=== PATIENT | female | born 1990 | race Caucasian/White ===

== ENCOUNTER 2017-06-30 05:15 | Emergency (ER) | payer MEDICAID, OTHER ==
[~2017-06-30 05:15] MED LIST: PERC5TAB12 PO; PRENTAB72 PO
--- NOTE | 2017-06-30 07:36 | PD ---
HPI Chief Complaint ctx Travel History International Travel<30 Days: No Contact w/Intl Traveler<30Days: No Known Affected Area: No History of Present Illness HPI 26y/o , IUP at 38.4 PNC complicated by h/o precipitous delivery (reports she went from "5 to 10cm in 30 minutes" Patient presents c/o ctx that became regular and every 5 minutes overnight although they have become more irregular. She denies any vaginal pressure or LOF. She denies any VB. She reports good FM. There were no aggravating or alleviating factors and no attempted treatments. The patient has no other ob complaints. Weeks Gestation: 38 Para: 2 : 3 History Past Medical History Medical History: Denies Significant Hx Obstetric History Obstetric History , FT x2 Past Surgical History Narrative Surgical Denies Family History Family History: Negative Social History Alcohol Use: No Tobacco Use: No Substance Abuse: No Allergies-Medications (Allergen,Severity, Reaction): Coded Allergies: No Known Allergies (Unverified , 06/07/13) Home Meds Reported Medications Oxycodone-Acetaminophen 5-325 mg (Percocet 5-325 mg) 5 Mg/325 Mg Tab, 1-2 TAB PO Q4 for PAIN, #20 TAB 06/27/13 Vit W/ Ferrous Fumara () Tab, 1 PO, TAB 06/25/13 Review of Systems Except as stated in HPI: all other systems reviewed are Neg Physical Exam Narrative GENERAL: Well-nourished, well-developed patient. SKIN: Warm and dry. HEAD: Normocephalic and atraumatic. EYES: No scleral icterus. No injection or drainage. ENT: No nasal drainage noted. Mucous membranes pink. Airway patent. NECK: Supple, trachea midline. No JVD. CARDIOVASCULAR: Regular rate and rhythm without murmurs, gallops, or rubs. RESPIRATORY: Breath sounds equal bilaterally. No accessory muscle use. BREASTS: Deferred ABDOMEN/GI: Abdomen soft, non-tender, bowel sounds present, no rebound, no guarding Gravid GENITOURINARY: External Genitalia: intact and normal in appearance No cervical/vaginal masses, normal rugae, physiologic d/c SVE 4/70/-2 per RN and unchanged over 1h, pt declined further observation/ evaluation [place] q 2-7, irregular pattern and patient comfortable throughout FHT's: Category 1 120s, moderate LTV, good acccels, no decels, reactive EXTREMITIES: No cyanosis or edema. BACK: Nontender without obvious deformity. No CVA tenderness. NEUROLOGICAL: Awake and alert. Motor and sensory grossly within normal limits. Five out of 5 muscle strength in all muscle groups. Normal speech. MDM Narrative Course / MDM A/P: 26y/o 1. IUP at 38.4 2. No evidence of active labor: strict labor precautions, offered additional observation due to h/o precipitous delivery but patient declines further observation for cervical change. 3. wellbeing: reassuring testing, reactive NST, FHR reassuring and appropriate for gestational age, FKC daily 4. F/U with primary Ob today as scheduled or sooner if needed Disposition: 01 DISCHARGE HOME Condition: Good Patient Instructions: General Instructions, Having Your Baby: The Labor Process (GEN), Movement (ED) Departure Forms: Tests/Procedures Rosanna Maldonado MD Jun 30, 2017 07:36
== END 2017-06-30 07:00 | disposition home or self-care (01) ==
LOC: HOBED 05:15
DX: O47.1 False labor at or after 37 completed weeks of gestation (principal); Z3A.38 38 weeks gestation of pregnancy
CPT/HCPCS: 59025; 99284

== ENCOUNTER 2017-06-30 11:50 | Inpatient (IN) | payer MEDICAID ==
[2017-06-30] VITALS (16 sets, daily range): BP systolic 105–144; BP diastolic 63–93; PULSE 78–96; RESP 16–18; TEMP 97.4–98.3
[2017-06-30] MEDS ORDERED: LACTATED RINGER'S 1000 ML INJ 1,000 ML IV PRN (12:35)
[2017-06-30] MEDS ORDERED: LACTATED RINGER'S 1000 ML INJ 1,000 ML IV SCH (12:35)
--- NOTE | 2017-06-30 12:44 | HHI.HP ---
HPI Chief Complaint 38 6/7 with cervical change consistent with active labor late care Date Seen: Jun 30, 2017 Travel History International Travel<30 Days: No Contact w/Intl Traveler<30Days: No Known Affected Area: No History of Present Illness HPI 26 yo mwf seen first time on 06/24 at [facility] high risk clinic. Sent there only because she could not get access to PNC in an office after obtaining her medicaid late in . Has had two term pregnancies and deliveries with no complication. Ultrasound in my office consistent with her LMP of 10/01/16 and should be 38 6/7. Was in L & D this am and sent home at 4 cm. 6cm in my office. Lives in [place]. Homemaker. No NV, DSOUZA, blurred vision, RUQT. No PTL. No leaking or bleeding. GFM. History Past Medical History Medical History: Denies Significant Hx Obstetric History Obstetric History two term SVDs proven to 8 pounds 13 ounces Past Surgical History Surgical History: No Previous Surgery Family History Family History: Negative Social History Alcohol Use: No Tobacco Use: No Substance Abuse: No Allergies-Medications (Allergen,Severity, Reaction): Coded Allergies: No Known Allergies (Unverified , 06/07/13) Home Meds Reported Medications Oxycodone-Acetaminophen 5-325 mg (Percocet 5-325 mg) 5 Mg/325 Mg Tab, 1-2 TAB PO Q4 for PAIN, #20 TAB 06/27/13 Vit W/ Ferrous Fumara () Tab, 1 PO, TAB 06/25/13 Review of Systems General / Constitutional: No: Fever, Weight Gain, Chills, Other Eyes: No: Diploplia, Blurred Vision, Visual changes, Pain, Photophobia HENT: No: Headaches, Vertigo, Lightheadedness Cardiovascular: No: Irregular Rhythm, Chest Pain or Discomfort, Palpitations, Tachycardia, Syncope, Varicosities, Edema, Cyanosis Respiratory: No: Cough, Short of Breath, Other Gastrointestinal: No: Nausea, Vomiting, Diarrhea Genitourinary: No: Decreased Urinary Output, Oliguria Musculoskeletal: No: Limited ROM, Weakness, Cramping, Edema, Pain Skin: No Rash, No Itching, No Dryness, No Lumps, No Change in Pigmentation, No Change in Nails, No Alopecia, No Lesions Neurologic: No: Weakness, Dizziness, Syncope, Focal Abnormalities, Coordination Problem, Headache, Slurred Speech, Seizures Psychiatric: No: Depression, Suicidal Ideations, Homicidal Ideation Endocrine: No: Heat Intolerance, Cold Intolerance, Polydipsia, Polyuria, Other Physical Exam Narrative GENERAL: Well-nourished, well-developed patient. SKIN: Warm and dry. HEAD: Normocephalic and atraumatic. EYES: No scleral icterus. No injection or drainage. ENT: No nasal drainage noted. Mucous membranes pink. Airway patent. NECK: Supple, trachea midline. No JVD. CARDIOVASCULAR: Regular rate and rhythm without murmurs, gallops, or rubs. RESPIRATORY: Breath sounds equal bilaterally. No accessory muscle use. BREASTS: Bilateral exam showed no masses , no retractions, no nipple discharge. ABDOMEN/GI: Abdomen soft, non-tender, bowel sounds present, no rebound, no guarding term fundus/cephalic GENITOURINARY: 6/80/-1 EFW 8 pounds pelvis clinically adequate strip category 1 EXTREMITIES: No cyanosis or edema. BACK: Nontender without obvious deformity. No CVA tenderness. NEUROLOGICAL: Awake and alert. Motor and sensory grossly within normal limits. Five out of 5 muscle strength in all muscle groups. Normal speech. Caprini VTE Risk Assessment Caprini VTE Risk Assessment: No/Low Risk (score <= 1) Caprini Risk Assessment Model Point Value = 1 Point Value = 2 Point Value = 3 Point Value = 5 Age 41-60 Minor surgery BMI > 25 kg/m2 Swollen legs Varicose veins or History of unexplained or recurrent spontaneous Oral contraceptives or hormone replacement Sepsis (< 1 month) Serious lung disease, including pneumonia (< 1 month) Abnormal pulmonary function Acute myocardial infarction Congestive heart failure (< 1 month) History of inflammatory bowel disease Medical patient at bed rest Age 61-74 Arthroscopic surgery Major open surgery (> 45 min) Laparoscopic surgery (> 45 min) Malignancy Confined to bed (> 72 hours) Immobilizing plaster cast Central venous access Age >= 75 History of VTE Family history of VTE Factor V Leiden Prothrombin [id number] Lupus anticoagulant Anticardiolipin antibodies Elevated serum homocysteine Heparin-induced thrombocytopenia Other congenital or acquired thrombophilia Stroke (< 1 month) Elective arthroplasty Hip, pelvis, or leg fracture Acute spinal cord injury (< 1 month) Prophylaxis Regimen Total Risk Factor Score Risk Level Prophylaxis Regimen 0-1 Low Early ambulation 2 Moderate Order ONE of the following: *Sequential Compression Device (SCD) *Heparin 5000 units SQ BID 3-4 Higher Order ONE of the following medications: *Heparin 5000 units SQ TID *Enoxaparin/Lovenox 40 mg SQ daily (WT < 150 kg, CrCl > 30 mL/min) *Enoxaparin/Lovenox 30 mg SQ daily (WT < 150 kg, CrCl > 10-29 mL/min) *Enoxaparin/Lovenox 30 mg SQ BID (WT < 150 kg, CrCl > 30 mL/min) AND/OR *Sequential Compression Device (SCD) 5 or more Highest Order ONE of the following medications: *Heparin 5000 units SQ TID (Preferred with Epidurals) *Enoxaparin/Lovenox 40 mg SQ daily (WT < 150 kg, CrCl > 30 mL/min) *Enoxaparin/Lovenox 30 mg SQ daily (WT < 150 kg, CrCl > 10-29 mL/min) *Enoxaparin/Lovenox 30 mg SQ BID (WT < 150 kg, CrCl > 30 mL/min) AND *Sequential Compression Device (SCD) Assessment/Plan Assessment and Plan term by dates but late PNC 6 cm and entering active labor obtain all labs arom when IV in place epidural prn pitocin prn anticipate Kerry Zamarripa MD Jun 30, 2017 12:44
[2017-06-30] MEDS ORDERED: OXYTOCIN 30 UNITS-500ML PREMIX 500 ML IV SCH ×2 (12:45→17:00)
[2017-06-30] MEDS ORDERED: LIDOCAINE HCL 1% 50 ML VIAL I-DERMAL PRN (12:45)
[2017-06-30] MEDS ORDERED: MINERAL OIL 10 ML VIAL TOPICAL PRN (12:45)
[2017-06-30] MEDS ORDERED: CITRIC ACID-SODIUM CITRATE LIQ 30 ML UDC PO SCH (12:45)
[2017-06-30] MEDS ORDERED: LIDOCAINE HCL 1% 50 ML VIAL INFIL PRN (12:45)
[2017-06-30] MEDS ORDERED: OXYTOCIN 30 UNITS-500ML PREMIX 500 ML IV ONE (12:45)
[2017-06-30] MEDS ORDERED: SODIUM CHLOR 0.9% 1000 ML INJ 1,000 ML IV PRN (12:55)
--- NOTE | 2017-06-30 13:19 | PD.LABORPN ---
Subjective Subjective Patient is resting in bed comfortably. Objective Objective Pelvic Exam: Cervix: midposition Dilatation: 6 Effacement: 60 Station: -2 Presentation: vertex Membranes: AROM, clear fluid Uterine Contractions: q2-4min FHT's: Category: I Baseline: 150 Reactive: + Variability: moderate Decels: none Weeks Gestation: 38 Gest Age Assessed Date: Jun 30, 2017 Gest Age Assessed Time: 13:15 Pt started active labor?: Yes Active labor start date: Jun 30, 2017 Active labor start time: 13:16 Medical induction of labor?: No Artificial rupture of membrane: Yes Artificial ROM date: Jun 30, 2017 Artifical ROM time: 13:15 Assessment/Plan Assessment and Plan 26 year old at 38-4/7 weeks gestation. 1. IUP- Category I tracing, reassuring. 2. Labor- AROM with clear fluid, labor progressing spontaneously. 3. GBS negative. 4. Anticipate vaginal delivery. riccow Arely Roman MD, R3 Jun 30, 2017 13:19
[2017-06-30 13:20] LABS: AUTOMATED NEUTROPHIL # 6.3 TH/MM3 (1.8-7.7); BASOPHIL % 0.1 % (0.0-2.0); EOSINOPHIL % 0.3 % (0.0-4.0); HEMATOCRIT 30.7 % (35.0-46.0); HEMO FLAGS DIFF FINAL; LYMPH % 21.8 % (9.0-44.0); LYMPHOCYTE # 1.9 TH/MM3 (1.0-4.8); MEAN CELL VOLUME 80.7 FL (80.0-100.0); MEAN CORPUSCULAR HEMOGLOBIN 26.1 PG (27.0-34.0); MEAN CORPUSCULAR HGB CONC 32.4 % (32.0-36.0); MONO % 4.6 % (0.0-8.0); NEUT % 73.2 % (16.0-70.0); PLATELET COUNT 216 TH/MM3 (150-450); RED BLOOD COUNT 3.81 MIL/MM3 (4.00-5.30); WHITE BLOOD COUNT 8.6 TH/MM3 (4.0-11.0)
[2017-06-30 13:31] LABS: BLOOD, URINE MOD (NEG); GLUCOSE,URINE NEG (NEG); KETONE, URINE 40 mg/dL (NEG); MUCUS URINE FEW /lpf (OCC); NITRITE,URINE NEG (NEG); SQUAMOUS EPITHELIAL CELL URINE 10 /hpf (0-5); TRANSITIONAL EPI CELLS, URINE <1 /hpf; URINE COLOR YELLOW (YELLW/STRAW)
[2017-06-30 13:34] LABS: COMMENT (UR) CULTURE INDICATED; CULTURE IF INDICATED CULTURE INDICATED
[2017-06-30] MEDS ORDERED: SODIUM CHLORID 0.9% 500 ML INJ 500 ML IV PRN (14:00)
[2017-06-30] MEDS ORDERED: DIPHTH/TETANUS/ACEL PERTUSSIS (BOOSTER) 0.5 ML VIAL/PFS IM ONE (16:00)
[2017-06-30] MEDS ORDERED: MEASLES, MUMPS, RUBELLA VACCINE 0.5 ML VIAL SQ ONE (16:00)
--- NOTE | 2017-06-30 16:57 | PD.OB.DELI ---
Weeks gestation: 38 Gest age assessed date: Jun 30, 2017 Gest age assessed time: 13:15 Pt started active labor?: Yes Active labor start date: Jun 30, 2017 Active labor start time: 13:16 Medical induction of labor?: No Artificial rupture of membrane: Yes Artificial ROM date: Jun 30, 2017 Artifical ROM time: 13:15 Anesthesia: None Episiotomy: None Vaginal Delivery: Normal Presentation: Occiput anterior Nuchal Cord: None Delayed cord clamping (45 sec): Yes Delivery date: Jun 30, 2017 Delivery time: 17:50 One Minute : 8 Five Minute : 9 Weight: Delayed for skin to skin Placenta: Spontaneous delivery, Intact, 3 vessel cord Laceration: No lacerations Estimated blood loss: 200cc Additional Information Supervised by Arely Roman MD, R3 Jun 30, 2017 16:57
[2017-06-30] MEDS ORDERED: WITCH HAZEL 50%/GLYCERIN 12.5% 40 PAD JAR TOPICAL PRN (17:00)
[2017-06-30] MEDS ORDERED: BENZOCAINE 20% TOPICAL SPRAY 60 ML CAN TOPICAL PRN (17:00)
[2017-06-30] MEDS ORDERED: oxyCODONE/ACETAMINOPHEN 5 MG/325 MG TAB PO PRN ×2 (17:00)
[2017-06-30] MEDS ORDERED: ZOLPIDEM TARTRATE 5 MG TAB PO PRN (17:00)
[2017-06-30] MEDS ORDERED: DOCUSATE SODIUM 50 MG/SENNA 8.6 MG TAB PO PRN (17:00)
[2017-06-30] MEDS ORDERED: ALUMINUM/MAGNESIUM/SIMETH 30 ML CUP PO PRN (17:00)
[2017-06-30] MEDS ORDERED: ACETAMINOPHEN 325 MG TAB PO PRN (17:00)
[2017-06-30] MEDS ORDERED: SODIUM CHLORIDE 0.9% FLUSH 10 ML FLUSH IV FLUSH PRN (17:00)
[2017-06-30] MEDS ORDERED: ONDANSETRON ODT 4 MG TAB PO PRN (17:00)
[2017-06-30 18:42] LABS: RUBELLA IGG ANTIBODY 13.2 IU/mL (10.0-500.0); RUBELLA STATUS IMMUNE (IMMUNE)
[2017-06-30] MEDS: IBUPROFEN 600 MG TAB PO PRN (20:02)
[2017-06-30] MEDS ORDERED: SODIUM CHLORIDE 0.9% FLUSH 10 ML FLUSH IV FLUSH SCH (21:00)
[2017-07-01] MEDS: IBUPROFEN 600 MG TAB PO PRN ×3 (03:22→18:53)
[2017-07-01 06:33] LABS: NEISSERIA PCR INVALID (NOT DETECT)
--- NOTE | 2017-07-01 07:53 | HHI.OB ---
Subjective Post Day: 1 Remarks no complaints, <24 hrs PP, Objective Vitals/I&O Vital Signs Date Time Temp Pulse Resp B/P (MAP) Pulse Ox O2 Delivery O2 Flow Rate FiO2 06/30/17 20:50 94 18 105/63 (77) 06/30/17 20:50 98.2 06/30/17 18:30 98.3 82 16 126/81 (96) 06/30/17 17:46 85 126/79 (95) 06/30/17 17:31 78 126/87 (100) 06/30/17 17:16 78 124/76 (92) 06/30/17 17:15 98.1 18 06/30/17 17:01 92 125/84 (98) 06/30/17 17:00 18 06/30/17 16:58 88 124/72 (89) 06/30/17 16:30 96 144/93 (110) 06/30/17 16:00 95 123/80 (94) 06/30/17 15:30 16 06/30/17 15:30 90 131/83 (99) 06/30/17 15:00 97.4 84 118/80 (93) 06/30/17 14:59 85 127/82 (97) 06/30/17 14:28 16 06/30/17 14:17 86 126/88 (101) Objective Remarks GENERAL: Well-nourished, well-developed patient. CARDIOVASCULAR: Regular rate and rhythm without murmurs, gallops, or rubs. RESPIRATORY: Breath sounds equal bilaterally. No accessory muscle use. ABDOMEN/GI: Abdomen soft, non-tender. Fundus: Firm, non-tender at umbilicus. GENITOURINARY: Light to moderate bleeding. EXTREMITIES: No cyanosis or edema, non-tender, without signs of DVT. Medications and IVs Current Medications Medications (Trade) Dose Ordered Sig/Mynor Route Start Time Stop Time Status Last Admin (NS Flush) 2 ml BID IV FLUSH 06/30/17 21:00 (NS Flush) 2 ml UNSCH PRN IV FLUSH 06/30/17 17:00 (Tylenol) 650 mg Q4H PRN PO 06/30/17 17:00 (Motrin) 600 mg Q6H PRN PO 06/30/17 17:00 07/01/17 03:22 (Percocet 5-325 Mg) 1 tab Q4H PRN PO 06/30/17 17:00 (Percocet 5-325 Mg) 2 tab Q4H PRN PO 06/30/17 17:00 (Americaine 20% Top Spr) 1 spray Q4H PRN TOPICAL 06/30/17 17:00 (Tucks Pads) 1 applic QID PRN TOPICAL 06/30/17 17:00 (Kamila-Colace) 2 tab Q12H PRN PO 06/30/17 17:00 (Ambien) 5 mg HS PRN PO 06/30/17 17:00 (Mag-Al Plus Susp Liq) 15 ml Q8H PRN PO 06/30/17 17:00 (Zofran Odt) 4 mg Q6H PRN PO 06/30/17 17:00 Assessment/Plan Assessment and Plan S/P PPD #1 late PNC Discharge Planning routine Attending Attestation pt seen by Eliza Hodges MD Jul 01, 2017 07:53
[2017-07-01 08:54] LABS: CHLAMYDIA PCR INVALID (NOT DETECT)
[2017-07-01 19:50] VITALS: BP 122/85; PULSE 65; RESP 18
[2017-07-02 07:25] VITALS: BP 103/73; PULSE 67; RESP 16; TEMP 97.8
--- NOTE | 2017-07-02 10:17 | HHI.OB ---
Subjective Post Day: 2 Remarks no complaints Objective Vitals/I&O Vital Signs Date Time Temp Pulse Resp B/P (MAP) Pulse Ox O2 Delivery O2 Flow Rate FiO2 07/02/17 07:25 97.8 67 16 103/73 (83) 07/01/17 19:50 65 122/85 (97) 07/01/17 19:50 18 Objective Remarks GENERAL: Well-nourished, well-developed patient. CARDIOVASCULAR: Regular rate and rhythm without murmurs, gallops, or rubs. RESPIRATORY: Breath sounds equal bilaterally. No accessory muscle use. ABDOMEN/GI: Abdomen soft, non-tender. Fundus: Firm, non-tender at umbilicus. GENITOURINARY: Light to moderate bleeding. EXTREMITIES: No cyanosis or edema, non-tender, without signs of DVT. Medications and IVs Current Medications Medications (Trade) Dose Ordered Sig/Mynor Route Start Time Stop Time Status Last Admin (NS Flush) 2 ml BID IV FLUSH 06/30/17 21:00 (NS Flush) 2 ml UNSCH PRN IV FLUSH 06/30/17 17:00 (Tylenol) 650 mg Q4H PRN PO 06/30/17 17:00 (Motrin) 600 mg Q6H PRN PO 06/30/17 17:00 07/01/17 18:53 (Percocet 5-325 Mg) 1 tab Q4H PRN PO 06/30/17 17:00 (Percocet 5-325 Mg) 2 tab Q4H PRN PO 06/30/17 17:00 (Americaine 20% Top Spr) 1 spray Q4H PRN TOPICAL 06/30/17 17:00 (Tucks Pads) 1 applic QID PRN TOPICAL 06/30/17 17:00 (Kamila-Colace) 2 tab Q12H PRN PO 06/30/17 17:00 (Ambien) 5 mg HS PRN PO 06/30/17 17:00 (Mag-Al Plus Susp Liq) 15 ml Q8H PRN PO 06/30/17 17:00 (Zofran Odt) 4 mg Q6H PRN PO 06/30/17 17:00 Assessment/Plan Assessment and Plan S/P PPD #2 late PNC Discharge Planning routine Attending Attestation pt seen by Eliza Hodges MD Jul 02, 2017 10:17
[2017-07-02] MEDS ORDERED: IBUP-232 PO (10:19)
--- NOTE | 2017-07-02 10:20 | HHI.DCPOC ---
Discharge Care Plan Your Health Problems Are: Pelvic pain Report Symptoms to Your Doctor -Temperature above 100.5 degrees -Redness, of incision or excessive or foul smelling drainage -Unusual pain or calf pain -Increased vaginal bleeding -Painful or difficulty urinating -Feelings of extreme sadness or anxiety after 2 weeks Goals to Promote Your Health * To prevent worsening of your condition and complications * To maintain your health at the optimal level Directions to Meet Your Goals Take your medications as prescribed Follow your dietary instruction Follow activity as directed Ensure plenty of rest for recovery Drink fluids for hydration Keep your appointments as scheduled Take your immunizations and boosters as scheduled If your symptoms worsen call your PCP, if no PCP go to Urgent Care Center or Emergency Room Smoking is Dangerous to Your Health. Avoid second hand smoke Call the 24-hour crisis hotline for domestic abuse at Elzia Vega MD Jul 02, 2017 10:20
[2017-07-04 10:43] LABS: BATH SALTS (MDPV) UR NEG (NEG); ECSTASY (MDMA) UR NEG (NEG); GABAPENTIN UR NEG (NEG); HEROIN (6-ACETYLMORPHINE) UR NEG (NEG); HYDROMORPHONE U NEG (NEG); K2 SPICE UR NEG (NEG); OBMETHADONE UR NEG (NEG); PHENCYCLIDINE URINE NEG (NEG)
== END 2017-07-02 12:10 | disposition home or self-care (01) | DRG 775 ==
LOC: H2EB 11:50 → H1EA 18:16
PROVIDERS: ADMIT Obstetrics & Gynecology; ATTEND Obstetrics & Gynecology
PROC: 10E0XZZ Delivery of Products of Conception, External Approach (ICD-10-PCS; principal; 2017-06-30)
DX: O80 Encounter for full-term uncomplicated delivery (principal); Z23 Encounter for immunization; Z3A.38 38 weeks gestation of pregnancy; Z37.0 Single live birth
CPT/HCPCS: 59025; 80074; 80307; 81001; 85025; 86592; 86703; 86762; 86900; 86901; 87086; 87491; 87591; 90715; G0481; J2590; J3010; J7120